=== PATIENT | female | born 1985 | race Caucasian/White ===

== ENCOUNTER 2016-12-11 12:48 | Inpatient (IN) | payer OTHER ==
[2016-11-23 13:53] VITALS: BMI 38.0
--- NOTE | 2016-11-23 14:08 | PAT Medication Instructions ---
Service Date Nov 23, 2016. Current Home Medication List Ferrous Sulfate (Iron), 1 TAB PO QAM Fluticasone Propionate (Nasal) (Flonase Allergy Relief), 1 DOSE NA DAILY Multivitamins/Minerals (Mvi With Minerals), 1 TAB PO HS Sertraline (Zoloft), 25 MG PO HS Medication Instructions For Your Scheduled Surgery - Hold the following medications the morning of surgery: Ferrous Sulfate (Iron), 1 TAB PO QAM - May take the following medications the morning of surgery: Fluticasone Propionate (Nasal) (Flonase Allergy Relief), 1 DOSE NA DAILY - Take the following medications as scheduled the night before surgery: Multivitamins/Minerals (Mvi With Minerals), 1 TAB PO HS Sertraline (Zoloft), 25 MG PO HS *Nothing to eat or drink after midnight* If you have any questions please call us at [phone] or [phone] or [phone]
[2016-11-23 14:54] LABS: HEMATOCRIT 33.8 % (37-47); MEAN CELL VOLUME 84.9 fL (80-100); MEAN CORPUSCULAR HEMOGLOBIN 28.1 pg (25-34); MEAN CORPUSCULAR HGB CONC 33.1 g/dl (32-36); MEAN PLATELET VOLUME 9.9 fL (7.4-10.4); PLATELET COUNT 240 K/uL (130-400); RED BLOOD COUNT 3.98 M/uL (4.2-5.4)
[2016-11-23 15:24] LABS: COMPLETE YES; LYMPH ABS # 1.02 K/uL (1.2-3.4); LYMPHOCYTE % 12.3 %; NEUTROPHILS % 84.2 %
[~2016-12-11] VITALS: Ht 154.9 cm; Wt 94.5 kg
[~2016-12-11 12:48] MED LIST: FERR1TAB23 PO; FLUT0.15; MULT-513 PO; SERT25TA PO
[2016-12-11] MEDS ORDERED: LACTATED RINGER'S 1000ML 1,000 ML IV SCH ×2 (13:20→15:00)
[2016-12-11] MEDS ORDERED: CITRIC ACID/SODIUM CITRATE 15 ML UDC PO ONE ×2 (13:30→14:15)
[2016-12-11 13:48] VITALS: BMI 40.0
[2016-12-11] MEDS ORDERED: OXYTOCIN INJ 10 UNITS/ML VIAL ONE (13:59)
[2016-12-11] MEDS ORDERED: FENTANYL CITRATE INJ 50 MCG/1 ML 2 ML VIAL ONE (13:59)
[2016-12-11] MEDS ORDERED: MoRPHine SULFATE PF 1 MG/ML 10 ML AMP/VIAL ONE (14:00)
[2016-12-11] MEDS ORDERED: CEFAZOLIN IV 2,000 MG in DEXTROSE 5% 50ML 50 ML IV ONE (14:15)
--- NOTE | 2016-12-11 14:15 | History & Physical Bridge Note ---
H&P Re-Evaluation Bridge Note: I have examined the patient, reviewed the History & Physical and in the interval since the performance of the History & Physical I have noted the following changes of clinical significance: No changes noted
[2016-12-11 14:28] LABS: BASO % 0.1 %; BASO ABS # 0.01 K/uL (0-0.2); COMPLETE YES; EOS % 0.2 %; HEMATOCRIT 35.9 % (37-47); IG% 0.6 %; LYMPH % 16.5 %; LYMPH ABS # 1.59 K/uL (1.2-3.4); MEAN CELL VOLUME 86.1 fL (80-100); MEAN CORPUSCULAR HEMOGLOBIN 27.3 pg (25-34); MEAN CORPUSCULAR HGB CONC 31.8 g/dl (32-36); MEAN PLATELET VOLUME 10.8 fL (7.4-10.4); MONO % 6.3 %; NEUT % 76.3 %; PLATELET COUNT 211 K/uL (130-400); RED BLOOD COUNT 4.17 M/uL (4.2-5.4); WHITE BLOOD COUNT 9.62 K/uL (4.8-10.8)
[2016-12-11] MEDS ORDERED: MoRPHine SULFATE PF 1 MG/ML 10 ML AMP/VIAL EPI PRN (14:28)
[2016-12-11] MEDS ORDERED: CEFAZOLIN SOD 1 GM VIAL ONE (14:34)
[2016-12-11] MEDS ORDERED: NALOXONE HCL INJ 1 MG in SODIUM CHLORIDE 0.9% 1000ML 1,000 ML IV PRN ×4 (14:43)
[2016-12-11] MEDS ORDERED: NALOXONE HCL INJ 0.08 MG in SYRINGE 1.8 ML IV PRN (14:43)
[2016-12-11] MEDS ORDERED: LACTATED RINGER'S 1000ML 500 ML IV PRN (14:43)
[2016-12-11] MEDS ORDERED: SODIUM CHLORIDE 0.9% 1000ML 1,000 ML IV PRN (14:43)
[2016-12-11] MEDS ORDERED: PROMETHAZINE HCL INJ 25 MG in SODIUM CHLORIDE 0.9% 50ML 50 ML IV PRN (14:45)
[2016-12-11] MEDS ORDERED: NALBUPHINE HCL INJ 10 MG/ML AMP IV PRN (14:45)
[2016-12-11] MEDS ORDERED: DiphenhydrAMINE HCL 50 MG/ML VIAL IV PRN (14:45)
[2016-12-11] MEDS ORDERED: NO NARCOTICS OR SEDATIVES SCH (14:45)
[2016-12-11] MEDS ORDERED: NALOXONE HCL 0.4 MG/1 ML VIAL/CARP IV PRN (14:45)
[2016-12-11] MEDS ORDERED: ONDANSETRON INJ 2 MG/ML 2 ML VIAL IV PRN (14:45)
[2016-12-11] MEDS ORDERED: EpHEDrine SULFATE INJ 50 MG/ML AMP IV PRN (14:45)
[2016-12-11] MEDS ORDERED: ONDANSETRON INJ 2 MG/ML 2 ML VIAL ONE (14:55)
[2016-12-11] MEDS ORDERED: DEXAMETHASONE SOD INJ 4 MG/ML VIAL ONE (14:55)
--- NOTE | 2016-12-11 15:05 | HISTORY & PHYSICAL EXAMINATION ---
DATE OF ADMISSION: 12/11/2016 HISTORY OF PRESENT ILLNESS: The patient is a 31-year-old G3, P2, due date 12/18/2016, making her 39+ weeks. The patient presented today with spontaneous rupture of membranes at 4:00 a.m. this morning. Fluid was clear. The patient has a prior section and was originally scheduled for repeat on 12/14/2016. Plan therefore is to proceed with section today. COURSE: Has been unremarkable. LABS: Blood type A positive, antibody negative, rubella immune, RPR nonreactive, GBS negative. PAST MEDICAL HISTORY: 1. Anxiety. 2. Depression. 3. Migraines. PAST SURGICAL HISTORY: C-sections x2, tonsillectomy. ALLERGIES: No known drug allergies. SOCIAL HISTORY: The patient denies tobacco, drug or alcohol use. OBSTETRIC AND GYNECOLOGIC HISTORY: x2. PHYSICAL EXAMINATION: GENERAL: Well-developed, well-nourished white female in no acute distress. HEART: S1, S2; regular rhythm and rate. LUNGS: Clear to auscultation bilaterally. ABDOMEN: Gravid. PELVIC: Deferred. EXTREMITIES: No cyanosis, clubbing or edema. ASSESSMENT AND PLAN: A 31-year-old G3, P2 at 39+ weeks, prior section x2. The patient wishes to have permanent sterilization. Consent is signed. Discussed risks and details of surgery. The patient has agreed to proceed with .
[2016-12-11 15:06] VITALS: Ht 154.9 cm; Wt 94.5 kg
[2016-12-11] MEDS ORDERED: OXYTOCIN INJ 20 UNITS in LACTATED RINGER'S 1000ML 1,000 ML IV SCH (16:00)
[2016-12-11] MEDS ORDERED: HYDROCORTISONE ACETATE 25 MG SUPP PR PRN (16:00)
[2016-12-11] MEDS ORDERED: LANOLIN OINT EXT PRN ×2 (16:00)
[2016-12-11] MEDS ORDERED: SUPERCREAM 0.870 % 15GM JAR EXT PRN (16:00)
[2016-12-11] MEDS ORDERED: SENNA 8.6 MG TAB PO PRN (16:00)
[2016-12-11] MEDS ORDERED: MAGNESIUM HYDROXIDE SUSP 30 ML UDC PO PRN (16:00)
[2016-12-11] MEDS ORDERED: BENZOCAINE 20% AER SPR 82.5 GM CAN EXT PRN (16:00)
--- NOTE | 2016-12-11 16:03 | Anesthesiology Progress Note ---
Anesthesia Post Op Note Date & Time Dec 11, 2016 at 16:02 Notes Mental Status: alert / awake / arousable, participated in evaluation Pt Amnestic to Procedure: Yes Nausea / Vomiting: adequately controlled Pain: adequately controlled Airway Patency, RR, SpO2: stable & adequate BP & HR: stable & adequate Hydration State: stable & adequate Neuraxial Anesthesia: was administered, sensory block is resolving Anesthetic Complications: no major complications apparent
--- NOTE | 2016-12-11 16:09 | [facility] Post Operative Brief Note ---
Immediate Operative Summary Operative Date Dec 11, 2016. Pre-Operative Diagnosis Spontaneous Rupture of Membranes at 39 Weeks. Caesarean Section x 2. Desires Repeat Caesarean Section with Bilateral Tubal Ligation. Post-Operative Diagnosis Same as Preop Procedure(s) Performed Live Male at [address] Villagran Debridging Machine Operator Surgeon(s) Dr. Oneill Estimated Blood Loss 800 ML Specimens Placenta (Exam) Cord Blood Portions of Left and Right Fallopian Tubes
--- NOTE | 2016-12-11 16:29 | OPERATIVE REPORT ---
DATE OF OPERATION: 12/11/2016 INDICATION FOR PROCEDURE: This is a 31-year-old multiparous patient with prior section x2, who is presently at 39+ weeks, wishes to have repeat and bilateral tubal ligation. PREOPERATIVE DIAGNOSES: 1. at 39+ weeks. 2. Previous section x3. 3. Term premature rupture of membranes. 4. Undesired fertility. POSTOPERATIVE DIAGNOSES: Same. PROCEDURES: 1. Repeat x3. 2. Bilateral tubal ligation. SURGEON: Jude Villagran MD FRAME BUILDER: Ryann Oneill MD ANESTHESIA: Spinal. ESTIMATED BLOOD LOSS: 600 mL. URINE OUTPUT: 500 mL clear urine at end of the procedure. INTRAVENOUS FLUIDS: 1000 mL. FINDINGS: Live infant male in cephalic presentation. There is no nuchal cord. Weight and Apgars in the pediatric record. DRAINS: Christian catheter. COMPLICATIONS: None. DISPOSITION: Stable to recovery room. DESCRIPTION OF PROCEDURE: The patient was taken to the operating room where she was prepped and draped in normal sterile fashion in dorsal lithotomy position. A Pfannenstiel incision was made and carried down to the fascia. Fascia was incised in the midline and extended laterally on both sides. The rectus abdominus muscle was sharply dissected off the fascia. Peritoneum was entered sharply. Once inside the uterus, a transverse incision was made on the uterus and extended laterally on both sides. Infant was delivered. Placenta was manually removed. Uterus was closed in 2 layers using 0 Vicryl. There was good hemostasis at the end of the closure. Both left and right fallopian tubes were identified by surgeon and retail assistant manager and followed to the fimbriated end. The right fallopian tube was grabbed in the mid portion and modified [place] tubal ligation performed on both tubes. Both specimens were sent for pathologic analysis. There was good hemostasis at end of the tubal ligation as well. Uterus was returned into the abdomen. Copious amount of irrigation was used to irrigate the abdomen. The peritoneum was closed with a running suture of plain gut suture. Fascia was closed with PDS suture. SubQ space was closed with plain suture and skin was closed with [place]. All instruments are removed from the abdomen and accounted for x2. The patient is stable and sent to recovery. I attest to the content of the Intraoperative Record and any orders documented therein. Any exceptio ns are noted below.
[2016-12-11] MEDS: SIMETHICONE 80 MG CHEW PO SCH ×2 (17:00→20:08)
[2016-12-11 19:45] VITALS: BP 105/65; PULSE 74; TEMP 36.7; O2SAT 98
[2016-12-11] MEDS: DOCUSATE SODIUM 100 MG CAP PO SCH (20:08)
[2016-12-11 20:45] VITALS: O2SAT 100
[2016-12-11 21:45] VITALS: O2SAT 96
[2016-12-11 22:45] VITALS: O2SAT 97
[2016-12-11 23:10] VITALS: BP 97/59; PULSE 79; TEMP 37.2; O2SAT 94
[2016-12-11] MEDS: KETOROLAC TROMETHAMINE 30 MG/ML VIAL IV. PRN (23:23)
[2016-12-12] VITALS (16 sets, daily range): BP systolic 94–108; BP diastolic 55–65; PULSE 78–89; TEMP 36.6–37.1; O2SAT 95–100
[2016-12-12 07:00] LABS: HEMATOCRIT 30.2 % (37-47); MEAN CELL VOLUME 86.5 fL (80-100); MEAN CORPUSCULAR HEMOGLOBIN 27.5 pg (25-34); MEAN CORPUSCULAR HGB CONC 31.8 g/dl (32-36); MEAN PLATELET VOLUME 10.4 fL (7.4-10.4); PLATELET COUNT 196 K/uL (130-400); RED BLOOD COUNT 3.49 M/uL (4.2-5.4); WHITE BLOOD COUNT 12.34 K/uL (4.8-10.8)
[2016-12-12 07:46] LABS: BASO % 0.2 %; BASO ABS # 0.02 K/uL (0-0.2); COMPLETE YES; EOS % 0.1 %; IG% 0.5 %; LYMPH % 16.3 %; LYMPH ABS # 2.01 K/uL (1.2-3.4); MONO % 9.6 %; NEUT % 73.3 %
[2016-12-12] MEDS: DOCUSATE SODIUM 100 MG CAP PO SCH ×2 (08:15→19:53)
[2016-12-12] MEDS: SIMETHICONE 80 MG CHEW PO SCH ×4 (08:15→19:53)
[2016-12-12] MEDS: PRENATAL VITAMIN TAB PO SCH (08:15)
[2016-12-12] MEDS: KETOROLAC TROMETHAMINE 30 MG/ML VIAL IV. PRN (08:18)
[2016-12-12] MEDS ORDERED: DiphenhydrAMINE HCL 50 MG/ML VIAL IV PRN (09:30)
[2016-12-12] MEDS ORDERED: ONDANSETRON INJ 2 MG/ML 2 ML VIAL IV PRN (09:30)
[2016-12-12] MEDS ORDERED: OXYCODONE/ACETAMINOPHEN 5-325 TAB PO PRN (09:30)
[2016-12-12] MEDS ORDERED: PROMETHAZINE HCL INJ 25 MG in SODIUM CHLORIDE 0.9% 50ML 50 ML IV PRN (09:30)
[2016-12-12] MEDS ORDERED: DC INTRASPINAL MORPHINE SCH (09:30)
[2016-12-12] MEDS ORDERED: ZOLPIDEM TARTRATE 5 MG TAB PO PRN (09:30)
--- NOTE | 2016-12-12 11:51 | OB/GYN Progress Note ---
LETTER OF CREDIT CLERK Progress Note Date of Service Dec 12, 2016. Subjective conversation w/ patient, physical exam Ambulation: ambulating normally Voiding: no voiding problems Passing Gas: Yes Diet Tolerance: Regular Diet Lochia: Small Feeding Type: Breast Feeding Pain: 2/10 Notes: Doing well, no concerns. Pain well controlled. Lochia minimal. Ambulating without difficulty. Objective Vital Signs Date Time Temp Pulse Resp B/P Pulse Ox O2 Delivery O2 Flow Rate FiO2 12/12/16 09:40 18 99 12/12/16 08:40 18 97 12/12/16 07:40 100 Room Air 12/12/16 07:40 18 100 12/12/16 07:36 18 98 12/12/16 07:20 36.9 89 18 100/56 98 Room Air 12/12/16 06:30 18 97 12/12/16 06:00 16 96 12/12/16 05:00 16 95 12/12/16 04:00 18 99 12/12/16 03:20 37.1 78 18 102/55 95 Room Air 12/12/16 03:00 18 96 12/12/16 02:00 16 95 12/12/16 01:00 18 100 12/12/16 00:10 18 96 12/11/16 23:10 37.2 79 16 97/59 94 Room Air 12/11/16 23:10 94 Room Air 12/11/16 23:10 16 94 12/11/16 22:45 18 97 12/11/16 21:45 16 96 12/11/16 20:45 18 100 12/11/16 19:45 18 98 12/11/16 19:45 36.7 74 18 105/65 98 Room Air 12/11/16 19:45 98 Room Air Physical Exam General Appearance: WELL-APPEARING Respiratory/Chest: chest non-tender, lungs clear Cardiovascular: regular rate, rhythm Abdomen: normal bowel sounds, soft Fundus: Firm Incision Description: Clean, Dry & Intact Extremities: normal range of motion, non-tender, no calf tenderness Laboratory Results Last 24 Hours Test 12/11/16 13:58 12/12/16 06:25 White Blood Count 9.62 K/uL 12.34 K/uL Red Blood Count 4.17 M/uL 3.49 M/uL Hemoglobin 11.4 g/dL 9.6 g/dL Hematocrit 35.9 % 30.2 % Mean Corpuscular Volume 86.1 fL 86.5 fL Mean Corpuscular Hemoglobin 27.3 pg 27.5 pg Mean Corpuscular Hemoglobin Concent 31.8 g/dl 31.8 g/dl Platelet Count 211 K/uL 196 K/uL Mean Platelet Volume 10.8 fL 10.4 fL Neutrophils (%) (Auto) 76.3 % 73.3 % Lymphocytes (%) (Auto) 16.5 % 16.3 % Monocytes (%) (Auto) 6.3 % 9.6 % Eosinophils (%) (Auto) 0.2 % 0.1 % Basophils (%) (Auto) 0.1 % 0.2 % Neutrophils # (Auto) 7.33 K/uL 9.06 K/uL Lymphocytes # (Auto) 1.59 K/uL 2.01 K/uL Monocytes # (Auto) 0.61 K/uL 1.18 K/uL Eosinophils # (Auto) 0.02 K/uL 0.01 K/uL Basophils # (Auto) 0.01 K/uL 0.02 K/uL RDW Standard Deviation 52.2 fL 53.0 fL RDW Coefficient of Variation 16.7 % 16.8 % Immature Granulocyte % (Auto) 0.6 % 0.5 % Immature Granulocyte # (Auto) 0.06 K/uL 0.06 K/uL Assessment and Plan Post-Op Day Number: 1 Continue Routine Care: -Continue routine postop care -Advance activity and diet as tolerated.
[2016-12-12] MEDS: IBUPROFEN 600 MG TAB PO PRN ×3 (13:20→21:33)
[2016-12-12] MEDS: OXYCODONE/ACETAMINOPHEN 5-325 TAB PO PRN ×3 (13:20→21:34)
[2016-12-12] MEDS ORDERED: BISACODYL 5 MG TABEC PO ONE (22:00)
[2016-12-12] MEDS ORDERED: SERTRALINE HCL 50 MG TAB PO SCH (22:00)
[2016-12-13 06:08] LABS: HEMATOCRIT 31.8 % (37-47)
[2016-12-13 07:30] VITALS: BP 114/73; PULSE 76; TEMP 36.8
[2016-12-13] MEDS: PRENATAL VITAMIN TAB PO SCH (07:39)
[2016-12-13] MEDS: OXYCODONE/ACETAMINOPHEN 5-325 TAB PO PRN ×2 (07:39→13:33)
[2016-12-13] MEDS: DOCUSATE SODIUM 100 MG CAP PO SCH (07:39)
[2016-12-13] MEDS: SIMETHICONE 80 MG CHEW PO SCH ×2 (07:39→13:34)
[2016-12-13] MEDS: IBUPROFEN 600 MG TAB PO PRN ×2 (07:40→13:33)
--- NOTE | 2016-12-13 08:54 | Surgery Progress Note ---
Surgery Progress Note Date of Service December 13, 2016. Subjective Post OP Day: 2 + ambulating (+ve), + diet, + feeling well, + flatus (+ve ), + pain controlled, + using KEYSEATER OPERATOR, No SOB, No bowel movement, No chest pain, No complaints, No nausea , No vomiting Objective Vital Signs: Date Time Temp Pulse Resp B/P Pulse Ox O2 Delivery O2 Flow Rate FiO2 12/12/16 23:30 Room Air 12/12/16 23:30 36.6 89 16 94/63 98 Room Air 12/12/16 15:30 36.8 79 18 108/65 99 Room Air 12/12/16 15:30 99 Room Air 12/12/16 09:40 18 99 General Appearance: WD/WN, no apparent distress Head: normocephalic, atraumatic Neck: supple, no adenopathy, thyroid normal, no JVD, no carotid bruits, trachea midline Cardiovascular: regular rate, rhythm, no edema, no gallop, no JVD, no murmur Abdomen: normal bowel sounds, non tender, non distended, soft, no organomegaly , no pulsatile mass Extremities: normal range of motion, non-tender, normal inspection, no pedal edema, no calf tenderness, normal capillary refill, pelvis stable Laboratory Results: Results Past 24 Hours Test 12/13/16 05:54 Range/Units Hemoglobin 9.9 12.0-16.0 g/dL Hematocrit 31.8 37-47 % Assessment & Plan s/pc/sec day #2 pt doing well no complaints d/c home tomorrow
--- NOTE | 2016-12-13 15:15 | Progress Note ---
Progress Note Date of Service December 13, 2016. Progress Note pt doing well wishes to go home today instead of tomorrow d/c home with instructions
[2016-12-13] MEDS ORDERED: OXYC-57 PO (15:16)
[2016-12-13] MEDS ORDERED: MTR600X PO (15:16)
--- NOTE | 2016-12-13 15:18 | Discharge Instructions ---
Discharge Instructions Date of Service December 13, 2016. Admission Reason for Admission: Check Rupture Membranes Discharge Discharge Diagnosis / Problem: postop Discharge Goals Goal(s): Routine recovery after Activity Recommendations Activity Limitations: as noted below ACTIVITY RECOMMENDATIONS: * Gradual return to full activity over the next 2-3 weeks. * No lifting - nothing heavier than baby over the next 2-3 weeks. * Do not engage in vigorous exercise, sexual activity or sports until cleared by your physician. * Do not drive or operate any motorized equipment until cleared by your physician. * You may shower/bathe daily. BREAST CARE: If you are not breast feeding: * Wear a supportive bra 24 hours a day for one to two weeks. * Avoid stimulating your breasts and nipples as much as possible during the first few weeks after delivery. * When taking a shower, have the warm water hit your back, not breasts. * When your breasts feel full, apply ice packs. Usually three to four times a day helps ease the discomfort. * Take a mild pain medication (Tylenol/Motrin) when you are uncomfortable. If breast feeding: * Use breast milk to lubricate nipples. Lansinoh cream may be used for sore nipples. You do not need to remove cream prior to breast feeding. If using a different brand of cream, check the label for directions regarding removal of cream prior to nursing. * Wear a supportive bra. * If having problems with breasts or breast feeding, call a work and family life consultant or your health care provider. OVER THE COUNTER MEDICATION: * For discomfort or pain, you may use Acetaminophen (Tylenol), Ibuprofen (Advil ), or Naproxen (Aleve) following the package directions. * For constipation you may use Colace following the package directions. SPECIAL CARE INSTRUCTIONS: When you are discharged from the hospital, it is important for you to follow the instructions listed below: * During the first week at home, you should be able to care for yourself and your baby. In addition, the usual light household activities are encouraged. * Limit your activities to the way you feel. Do not try to clean the house or move furniture. Be sensible. * If you actively engage in sports and have done so up until the time of your delivery, you may resume these activities as soon as you feel able. This may take up to one month or even longer. Use good judgment. * Continue to take your vitamins for at least six weeks after the of your baby. * Your diet need not be limited unless you were on a special diet before your delivery. Breast-feeding mothers need around 2500 calories per day and at least 64-80 ounces of fluid per day (8 to 10 glasses). * You should eat foods from the four major food groups. Crash diets or fad diets are to be avoided. Eating lean meats, fresh fruits and vegetables, low-fat dairy products, high fiber foods and a regular exercise program, will help you get back to your pre- weight without putting your health at risk. * Constipation is sometimes a problem after delivery. Take a mild laxative as needed. If breast feeding, Milk of Magnesia is acceptable to use. You may use a suppository or Fleets enema if no episiotomy. * A daily shower or tub bath is suggested. Be sure to thoroughly and gently dry the perineum. * A bloody vaginal discharge will usually continue until around four weeks post . A small amount of bleeding may continue for as long as six weeks. Vaginal discharge changes from the bright red bleeding after delivery to pink then brownish and finally yellowish-pink before becoming white and disappearing. * Bleeding may increase with activity. Your first period may come in 4-8 weeks. If you are breast feeding, your period may be delayed even longer. * [place] (sex) can begin whenever both you and your partner feel comfortable and do not have any form of genital infection. It is recommended that you wait at least six weeks for internal and external healing to occur. If you have questions, please talk to your health care practitioner. A condom should be used to prevent infection and . * Foreplay, gentle intercourse and lubrication is very important the first several times to prevent pain. A water-based lubricant such as K-Y jelly or Astroglide may be used. * Tampons and/or Douching should be avoided until after six weeks check-up. * If you have RH negative blood and your baby is RH positive, you will receive RHOGAM by injection prior to discharge. The nurse will give you a card to keep with you that has the date and place that you received RHOGAM after delivery. * During your care, you had a Rubella screen done to check for the presence of rubella antibodies in your blood. If your test was negative, you will receive a Rubella vaccine prior to discharge. This vaccine may cause a fever, soreness at the injection site and flu-like symptoms. If these symptoms persist, notify your health care practitioner. is not advised for three months after a Rubella vaccine. * Verbalizes understanding of car seat law as reviewed with patient nursing. * Car Seat hand-out given and reviewed with patient by nursing. * Shaken baby information reviewed with patient by nursing. Call you doctor if: * Heavy bleeding (saturating several pads an hour) or passing clots the size of your fist. * A fever >101 degrees F (38.3 degrees C) on two occasions four hours apart and /or chills. * Unusual pain in the pelvic or vaginal areas. Pain should improve each day . * Call the doctor for any increased redness, drainage or swelling around the incision and any pain unrelieved by prescribed pain medication. * Any signs or symptoms of phlebitis (possible blood clots forming in the veins ): leg pain, warm, red or swollen area on leg. * "Baby Blues" lasting longer than two weeks. If you have any questions or concerns, call your health care practitioner at . FOLLOW-UP VISIT: * Incision check (staple removal) in 1 week. Please call doctor's office at to set up appointment. * Please call the office at to schedule a 6 week examination. It is important you keep this appointment. * It is important for you to make arrangements for either yearly or twice yearly check-ups thereafter. . Current Hospital Diet Patient's current hospital diet: Regular OB Diet Discharge Diet Recommended Diet: Regular Diet Procedures Procedures Performed: Live Male at 1451 Pending Studies Studies pending at discharge: no Medical Emergencies . Who to Call and When: Medical Emergencies: If at any time you feel your situation is an emergency, please call [phone] immediately. . Non-Emergent Contact Non-Emergency issues call your: Specialist . . "Provider Documentation" section prepared by Jude Villagran. . VTE Core Measure Inpt VTE Proph given/why not?: Treatment not indicated
[2016-12-13 15:55] VITALS: BP_DIAS 73; PULSE 76; TEMP 36.8
[2016-12-13] MEDS ORDERED: BISACODYL 10 MG SUPP PR PRN (16:00)
--- NOTE | 2016-12-14 07:45 | DISCHARGE SUMMARY ---
CHIEF COMPLAINT: 1. at term. 2. Previous section. 3. Premature rupture of membranes. HISTORY OF PRESENT ILLNESS: This is a 31-year-old G3, P2 with due date of 12/18/2016 making her 39+ weeks on 12/11/2016. The patient was originally scheduled for on 12/14/2016. She, however, presented on 12/11/2016 with premature spontaneous rupture of membranes at 4:00 a.m. Decision was therefore made to proceed with section and tubal ligation, which the patient had been scheduled and consented to earlier. COURSE AND : Unremarkable. LABORATORY DATA: Blood type A positive, antibody negative, rubella immune, RPR nonreactive, GBS negative. PAST MEDICAL HISTORY: 1. Anxiety. 2. Depression. 3. Migraines. PAST SURGICAL HISTORY: C-sections x3 and tonsillectomy. ALLERGIES: No known drug allergies. SOCIAL HISTORY: The patient denied tobacco, drug or alcohol use. PRIOR OB-STRATEGIC PLANNING MANAGER HISTORY: x2. REVIEW OF SYSTEMS: Negative except as dictated in the HPI. HOSPITAL COURSE: The patient underwent 12/11/2016 to deliver a live male. Details of the weight and Apgars are in the pediatric record. She also had a bilateral tubal ligation with the procedure. Details of surgery are in the surgical record as well. Surgery was unremarkable. The patient did well, met all milestones on day 1 of surgery. The patient was able to ambulate, tolerate p.o. food and diet. Today on day 2, the patient continued to do well and improved. She decided to go home today. She had 2 other kids at home and was not willing to stay the extra day, which is often section. She has no fever, no chills, able to tolerate p.o. food and meds. The patient was therefore discharged home today in stable condition. PHYSICAL EXAMINATION: GENERAL: Well-developed, well-nourished white female in no acute distress. VITAL SIGNS: On 12/13/2016, showed temperature of 36.8, pulse of 76, respirations of 16, blood pressure of 140/73. HEART: S1, S2, regular rhythm and rate. LUNGS: Clear to auscultation bilaterally. ABDOMEN: Nontender, nondistended. Positive bowel sounds. Incision is clean, dry and intact. EXTREMITIES: No cyanosis, clubbing or edema. LABORATORY DATA: On 12/13/2016 showed hemoglobin of 9.9, hematocrit of 31.8. Platelets of 196,000. CONDITION ON DISCHARGE: Stable. OPERATIONS: Repeat x3 plus bilateral tubal ligation. DISCHARGE DIAGNOSIS: Repeat x3 plus bilateral tubal ligation. PLAN ON DISCHARGE: The patient is discharged home with instructions regarding activity, diet, followup appointment and medications. GENESIS
== END 2016-12-13 17:00 | disposition home or self-care (01) | DRG 766 ==
LOC: C.LD 12:48 → C.OPB 12:48 → C.LD 13:23 → C.OPB 14:56 → C.OBG 19:16 → EDSTATUS 12-14 07:30
PROVIDERS: ADMIT Obstetrics & Gynecology; ATTEND Obstetrics & Gynecology
PROC: 0UL70ZZ Occlusion of Bilateral Fallopian Tubes, Open Approach (ICD-10-PCS; principal; 2016-12-11 14:00)
PROC: 10D00Z1 Extraction of Products of Conception, Low, Open Approach (ICD-10-PCS; principal; 2016-12-11 14:00)
DX: O34.211 Maternal care for low transverse scar from previous cesarean delivery (principal); O42.02 Full-term premature rupture of membranes, onset of labor within 24 hours of rupture; Z30.2 Encounter for sterilization; O99.344 Other mental disorders complicating childbirth; F32.9 Major depressive disorder, single episode, unspecified; Z3A.39 39 weeks gestation of pregnancy; Z37.0 Single live birth; G43.909 Migraine, unspecified, not intractable, without status migrainosus; F41.9 Anxiety disorder, unspecified; O99.353 Diseases of the nervous system complicating pregnancy, third trimester

== ENCOUNTER 2017-05-20 21:37 | Emergency (ER) | payer OTHER ==
[~2017-05-20] VITALS: Ht 154.9 cm; Wt 90.3 kg
[~2017-05-20 21:37] MED LIST changes: +MTR600X PO; +OXYC-57 PO
[2017-05-20 21:40] VITALS: TEMP 37; Ht 154.9 cm; Wt 90.3 kg
[2017-05-20] MEDS ORDERED: KETOROLAC TROMETHAMINE 30 MG/ML VIAL IV STA (22:59)
[2017-05-20] MEDS ORDERED: DiphenhydrAMINE HCL 50 MG/ML VIAL IV STA (22:59)
[2017-05-20] MEDS ORDERED: PROCHLORPERAZINE 5 MG/ML 2 ML VIAL IV STA (22:59)
[2017-05-20] MEDS ORDERED: SODIUM CHLORIDE 0.9% 1000ML 1,000 ML IV ONE (23:00)
[2017-05-20] MEDS ORDERED: SERT50TA PO (23:13)
[2017-05-20] MEDS ORDERED: [UNRECOGNIZED DRUG - OTHER] PO (23:15)
[2017-05-20 23:42] LABS: BASO % 0.4 %; BASO ABS # 0.04 K/uL (0-0.2); COMPLETE YES; EOS % 1.4 %; HEMATOCRIT 41.1 % (37-47); IG% 0.3 %; LYMPH % 29.5 %; LYMPH ABS # 3.32 K/uL (1.2-3.4); MEAN CELL VOLUME 89.5 fL (80-100); MEAN CORPUSCULAR HEMOGLOBIN 29.8 pg (25-34); MEAN CORPUSCULAR HGB CONC 33.3 g/dl (32-36); MONO % 6.2 %; NEUT % 62.2 %; PLATELET COUNT 393 K/uL (130-400); RED BLOOD COUNT 4.59 M/uL (4.2-5.4); WHITE BLOOD COUNT 11.25 K/uL (4.8-10.8)
[2017-05-21] LABS: CALCIUM 9.4 mg/dl (8.5-10.1); CREATININE 0.67 mg/dl (0.60-1.20); POTASSIUM 3.7 mmol/L (3.5-5.1)
[2017-05-21 00:03] LABS: ALB/GLOB RATIO 1.1 (0.9-2)
[2017-05-21 01:07] LABS: LYME DISEASE AB IGG NEG (NEG); LYME DISEASE AB IGM NEG (NEG)
[2017-05-21 01:29] VITALS: BP 130/93; PULSE 86; O2SAT 97
[2017-05-21] MEDS ORDERED: AMOX875T PO (02:28)
[2017-05-21] MEDS ORDERED: AMOXICIL/CLAVU 875MG HOME PACK PO ONE (02:30)
--- NOTE | 2017-05-21 07:02 | DIAGNOSTIC IMAGING REPORT ---
HEAD WITHOUT CONTRAST (CT) CLINICAL HISTORY: 31 years-old Female with Head/Face pain after dental surgery. Acute head and facial pain status post dental surgery TECHNIQUE: Multiple axial CT images of the head were obtained without contrast. A dose lowering technique was utilized adhering to the principles of ALARA. CT DOSE: 760.82 mGy.cm COMPARISON: CT maxillofacial same day. FINDINGS: No acute intracranial hemorrhage, midline shift, mass, large territorial ischemia or abnormal extra-axial collection. The calvarium is intact. The paranasal sinuses, mastoid air cells, and middle ear cavities are clear. IMPRESSION: No acute intracranial abnormality. The above report was generated using voice recognition software. It may contain grammatical, syntax or spelling errors. Electronically signed by: Thong Ruiz M.D. 05/21/2017 7:01 AM Dictated Date/Time: 05/21/2017 7:00 AM
--- NOTE | 2017-05-21 07:25 | DIAGNOSTIC IMAGING REPORT ---
FACIAL BONES-MXILLOFAC WITHOUT CLINICAL HISTORY: 31 years-old Female presenting with Head/Face pain after dental surgery. Acute facial pain status post dental surgery COMPARISON STUDY: CT head same day TECHNIQUE: High-resolution CT scan of the facial bones is performed. Images are reviewed in the axial, sagittal, and coronal planes. IV contrast was not administered for this examination. A dose lowering technique was utilized adhering to the principles of ALARA. FINDINGS: There is evidence of recent bilateral maxillary and mandibular third molar extraction. Multifocal fractures are seen within the adjacent bilateral maxillary and left mandibular carmichael at the surgical sites as seen on images 243 of series 5 and image 166 series 5 as well as image 51 series 500 and image 49 series 500. Soft tissue swelling is also seen within these distributions without loculated collection to suggest abscess at this time. There is dental amalgam artifact throughout the oral cavity which mildly limits the study. The bony orbits are intact and the orbital contents are within normal limits. The zygomatic arches, nasal bones, and pterygoid plates are preserved. The maxilla and mandible are intact. Mild mucosal thickening of the maxillary and ethmoid sinuses. The imaged calvarium and upper cervical spine are within normal limits. Partially imaged brain parenchyma is within normal limits. IMPRESSION: Evidence of recent bilateral maxillary and mandibular third molar tooth extraction. Multiple fractures are seen within the adjacent bilateral maxillary and left mandibular carmichael at the surgical sites as above. There is adjacent soft tissue swelling within these distributions without loculated collection to suggest abscess at this time. The above report was generated using voice recognition software. It may contain grammatical, syntax or spelling errors. Electronically signed by: Thong Ruiz M.D. 05/21/2017 7:24 AM Dictated Date/Time: 05/21/2017 7:17 AM
--- NOTE | 2017-05-22 03:05 | EMERGENCY ROOM VISIT NOTE ---
History First contact with patient: 22:43 Chief Complaint: HEADACHE Stated Complaint: HEADACHE, SORE THROAT, RASH History of Present Illness The patient is a 31 year old female who presents to the Emergency Room with complaints of right-sided facial pain and headache for the past 2 weeks. The patient states that she has slowly developed symptoms after having her wisdom teeth extracted. She additionally reports having a rash on her hands, however her young son has a similar rash and he does attend daycare. The patient has not had fever or chills. She does not have neck pain, chest pain, chest tightness, or shortness of breath. She has been able to eat and drink. She has had intermittent sore throat but no throat swelling. She rates her discomfort a 7/10. Review of Systems More than 10 systems were reviewed and otherwise negative with the exception of history of present illness. Past Medical/Surgical History Medical Problems: (1) Anxiety State Nos (2) Asthma, Unspecified (3) Depressive Disorder Nec (4) Migraine Unspecified W/O Intract Mgrn W/O Status Migrainosus Social History Problems: (1) Anxiety State Nos Family History Cardiovascular disease Diabetes mellitus Social History Smoking Status: Never Smoker Alcohol Use: occasionally Drug Use: none Marital Status: Housing Status: unknown Occupation Status: employed Current/Historical Medications Scheduled Amoxicillin & Pot Clavulanate (Augmentin 875-125 mg), 1 TAB PO BID Sertraline (Zoloft), 50 MG PO DAILY [Tylenol Severe Sinus], 2 TABS PO DAILY Physical Exam Vital Signs Date Time Temp Pulse Resp B/P (MAP) Pulse Ox O2 Delivery O2 Flow Rate FiO2 05/21/17 01:29 86 18 130/93 97 Room Air 05/20/17 21:40 37.0 92 18 141/99 98 Room Air Physical Exam VITALS: Vitals are noted on the nurse's note and reviewed by myself. Vital signs stable. GENERAL: Well-developed, well-nourished, white female, who is in no acute distress and resting comfortably. Patient is cooperative with the examination. HEAD: Normocephalic atraumatic. EARS: External ear normal. External auditory canals clear, tympanic membranes pearly terry without erythema or effusion bilaterally. EYES: Pupils equal round and reactive to light and accommodation. Conjunctivae without injection, sclerae without icterus. Extraocular movements intact. NOSE: Patent, turbinates without inflammation or discharge. MOUTH: Mucous membranes moist. Tonsils are not enlarged. Pharynx without erythema, blood, or exudate. Uvula midline. Airway patent. Dentition overall good repair. There appears to be recent extraction of right-sided wisdom teeth without obvious abscess. No evidence of Darren's. NECK: Supple without nuchal rigidity. No lymphadenopathy. No thyromegaly. Cervical spine is nontender. No meningismus. HEART: Regular rate and rhythm without murmurs gallops or rubs. LUNGS: Clear to auscultation bilaterally without wheezes, rales or rhonchi. No retractions or accessory muscle use. ABDOMEN: Positive normal bowel sounds x 4. Soft, nontender, without masses or organomegaly. No guarding or rebound tenderness. MUSCULOSKELETAL: No muscle atrophy, erythema, or edema noted. Full range of motion without joint tenderness in all extremities. Medical Decision & Procedures ER Provider Diagnostic Interpretation: [~ rep ct add3]] HEAD WITHOUT CONTRAST (CT) CLINICAL HISTORY: 31 years-old Female with Head/Face pain after dental surgery. Acute head and facial pain status post dental surgery TECHNIQUE: Multiple axial CT images of the head were obtained without contrast. A dose lowering technique was utilized adhering to the principles of ALARA. CT DOSE: 760.82 mGy.cm COMPARISON: CT maxillofacial same day. FINDINGS: No acute intracranial hemorrhage, midline shift, mass, large territorial ischemia or abnormal extra-axial collection. The calvarium is intact. The paranasal sinuses, mastoid air cells, and middle ear cavities are clear. IMPRESSION: No acute intracranial abnormality. FACIAL BONES-MXILLOFAC WITHOUT CLINICAL HISTORY: 31 years-old Female presenting with Head/Face pain after dental surgery. Acute facial pain status post dental surgery COMPARISON STUDY: CT head same day TECHNIQUE: High-resolution CT scan of the facial bones is performed. Images are reviewed in the axial, sagittal, and coronal planes. IV contrast was not administered for this examination. A dose lowering technique was utilized adhering to the principles of ALARA. FINDINGS: There is evidence of recent bilateral maxillary and mandibular third molar extraction. Multifocal fractures are seen within the adjacent bilateral maxillary and left mandibular carmichael at the surgical sites as seen on images 243 of series 5 and image 166 series 5 as well as image 51 series 500 and image 49 series 500. Soft tissue swelling is also seen within these distributions without loculated collection to suggest abscess at this time. There is dental amalgam artifact throughout the oral cavity which mildly limits the study. The bony orbits are intact and the orbital contents are within normal limits. The zygomatic arches, nasal bones, and pterygoid plates are preserved. The maxilla and mandible are intact. Mild mucosal thickening of the maxillary and ethmoid sinuses. The imaged calvarium and upper cervical spine are within normal limits. Partially imaged brain parenchyma is within normal limits. IMPRESSION: Evidence of recent bilateral maxillary and mandibular third molar tooth extraction. Multiple fractures are seen within the adjacent bilateral maxillary and left mandibular carmichael at the surgical sites as above. There is adjacent soft tissue swelling within these distributions without loculated collection to suggest abscess at this time. Laboratory Results 05/20/17 23:22 Red Blood Count 4.59, Mean Corpuscular Volume 89.5, Mean Corpuscular Hemoglobin 29.8, Mean Corpuscular Hemoglobin Concent 33.3, Mean Platelet Volume 10.0, Neutrophils (%) (Auto) 62.2, Lymphocytes (%) (Auto) 29.5, Monocytes (%) (Auto) 6.2, Eosinophils (%) (Auto) 1.4, Basophils (%) (Auto) 0.4, Neutrophils # (Auto) 7.00, Lymphocytes # (Auto) 3.32, Monocytes # (Auto) 0.70, Eosinophils # (Auto) 0.16, Basophils # (Auto) 0.04 05/20/17 23:22 Test 05/20/17 23:22 White Blood Count 11.25 K/uL (4.8-10.8) Red Blood Count 4.59 M/uL (4.2-5.4) Hemoglobin 13.7 g/dL (12.0-16.0) Hematocrit 41.1 % (37-47) Mean Corpuscular Volume 89.5 fL (80-100) Mean Corpuscular Hemoglobin 29.8 pg (25-34) Mean Corpuscular Hemoglobin Concent 33.3 g/dl (32-36) Platelet Count 393 K/uL (130-400) Mean Platelet Volume 10.0 fL (7.4-10.4) Neutrophils (%) (Auto) 62.2 % Lymphocytes (%) (Auto) 29.5 % Monocytes (%) (Auto) 6.2 % Eosinophils (%) (Auto) 1.4 % Basophils (%) (Auto) 0.4 % Neutrophils # (Auto) 7.00 K/uL (1.4-6.5) Lymphocytes # (Auto) 3.32 K/uL (1.2-3.4) Monocytes # (Auto) 0.70 K/uL (0.11-0.59) Eosinophils # (Auto) 0.16 K/uL (0-0.5) Basophils # (Auto) 0.04 K/uL (0-0.2) RDW Standard Deviation 42.3 fL (36.4-46.3) RDW Coefficient of Variation 13.0 % (11.5-14.5) Immature Granulocyte % (Auto) 0.3 % Immature Granulocyte # (Auto) 0.03 K/uL (0.00-0.02) Anion Gap 10.0 mmol/L (3-11) Est Creatinine Clear Calc Drug Dose 122.1 ml/min Estimated GFR () 133.9 Estimated GFR (Non- 115.5 BUN/Creatinine Ratio 15.0 (10-20) Calcium Level 9.4 mg/dl (8.5-10.1) Total Bilirubin 0.2 mg/dl (0.2-1) Aspartate Amino Transf (AST/SGOT) 18 U/L (15-37) Alanine Aminotransferase (ALT/SGPT) 44 U/L (12-78) Alkaline Phosphatase 86 U/L (45-117) Total Protein 8.0 gm/dl (6.4-8.2) Albumin 4.1 gm/dl (3.4-5.0) Globulin 3.9 gm/dl (2.5-4.0) Albumin/Globulin Ratio 1.1 (0.9-2) Lyme Disease IgG Antibody NEG (NEG) Lyme Disease IgM Antibody NEG (NEG) Medications Administered Medications (Trade) Dose Ordered Sig/Jos Route Start Time Stop Time Status Last Admin Dose Admin Sodium Chloride 1,000 ml @ 999 mls/hr Q1H1M ONCE IV 05/20/17 23:00 05/21/17 00:00 DC 05/20/17 23:33 999 MLS/HR Diphenhydramine HCl (Benadryl Inj) 25 mg NOW STAT IV 05/20/17 22:59 05/20/17 23:01 DC 05/20/17 23:33 25 MG Prochlorperazine Edisylate (Compazine Inj) 5 mg NOW STAT IV 05/20/17 22:59 05/20/17 23:01 DC 05/20/17 23:34 5 MG Ketorolac Tromethamine (Toradol Inj) 30 mg NOW STAT IV 05/20/17 22:59 05/20/17 23:01 DC 05/20/17 23:34 30 MG Amoxicillin/ Clavulanate Potassium (Augmentin 875MG Home Pack) 1 homepack UD ONCE PO 05/21/17 02:30 05/21/17 02:31 DC 05/21/17 02:45 1 HOMEPACK ED Course Physical exam and history were performed. Nursing notes, EMR, and Medication List were personally reviewed. Patient appears to have headache and right-sided facial pain for the past several days. The patient does not appear toxic on examination. She does have recent history of was some teeth removal. IV access was established and labs were obtained. Patient was hydrated medicated as above. Because of her symptoms I did elect CT scan of the head and face. The patient has a very minimally elevated white blood cell count of 11,000. She does not have a significant anemia or bandemia. No significant electrolyte imbalance. CT scan of the head does not show significant findings. CT scan of the face does show evidence of recent extraction with small fractures at the extraction sites. Overall the patient appears well for discharge home. I suspect much of her discomfort is coming from traumatic dental extraction. I will start her on a course of antibiotics to help eliminate infectious etiology. Evidently the patient has an upcoming appointment with her surgeon in 3 days, and is to keep that appointment. She may use [id number] ibuprofen and Tylenol. She was given additional discharge instructions as below. The chart was completed utilizing [employer] Speech Voice Recognition Software. Grammatical errors, random word insertions, pronoun errors, and incomplete sentences are an occasional consequence of this system due to software limitations, ambient noise, and hardware issues. Any formal questions or concerns about the content, text, or information contained within the body of this dictation should be directly addressed to the provider for clarification. . Medical Decision The differential diagnosis includes, but is not limited to: Dental infection, traumatic dental removal, Ludwigs, cellulitis, acute intracranial bleed, meningitis, encephalitis, mass or mass effect, sinusitis, infection, tumor, headache, temporal arteritis and carbon monoxide exposure, and migraine. Impression Primary Impression: Facial pain Departure Information Dispostion Home / Self-Care Condition GOOD Prescriptions Amoxicillin & Pot Clavulanate (Augmentin 875-125 mg) 1 Tab Tab 1 TAB PO BID for 10 Days, #20 TAB Prov: Pramod Jimenez PA-C 05/21/17 Forms HOME CARE DOCUMENTATION FORM, IMPORTANT VISIT INFORMATION Patient Instructions My [facility] Additional Instructions You were seen and evaluated today on an emergency basis only. This is not a substitute for, or an effort to provide, complete comprehensive medical care. It is not possible to recognize and treat all injuries or illnesses in a single emergency department visit. For this reason it is recommended that you followup with your dentist/oral surgeon next week for ongoing care and evaluation. For baseline pain relief you may alternate ibuprofen and acetaminophen every 4 hours for pain control. Take 600 mg ibuprofen (Advil) and then 4 hours later take 1000 mg acetaminophen (Tylenol). Do not take more than 3000 mg acetaminophen in a single day. Amoxicillin Clavulanate (Augmentin) 875mg: Take one pill twice daily for 10 days for your infection. All antibiotics can cause diarrhea. If this occurs and you feel worse or it does not resolve in 1-2 days follow up with your doctor or return to the Emergency Department as this could be signs of serious underlying problems. Any medication can cause an allergic reaction, stop the pills immediately and return to the ER for rash, hives, breathing difficulties, or swelling. You are welcome to return to the emergency department anytime with new, worsening, or concerning symptoms.
== END 2017-05-21 02:35 | disposition home or self-care (01) ==
LOC: C.EDB 21:38 → C.EDA 05-21 02:35
DX: R51 Headache (principal); F41.9 Anxiety disorder, unspecified; J45.909 Unspecified asthma, uncomplicated; F32.9 Major depressive disorder, single episode, unspecified; Z82.49 Family history of ischemic heart disease and other diseases of the circulatory system; Z83.3 Family history of diabetes mellitus

== ENCOUNTER 2017-08-06 17:45 | Emergency (ER) | payer OTHER ==
[~2017-08-06] VITALS: Ht 154.9 cm; Wt 94.2 kg
[~2017-08-06 17:45] MED LIST changes: -FERR1TAB23 PO; -FLUT0.15; -MTR600X PO; -MULT-513 PO; -OXYC-57 PO; -SERT25TA PO; +[UNRECOGNIZED DRUG - OTHER] PO
[2017-08-06 17:47] VITALS: BP 130/89; PULSE 82; TEMP 36.7; O2SAT 98; Ht 154.9 cm; Wt 94.2 kg
[2017-08-06] MEDS ORDERED: B-CO1CAP17 PO (18:31)
[2017-08-06] MEDS ORDERED: FLNIN/ NAE (18:31)
[2017-08-06] MEDS ORDERED: ROYA1CAP2 PO (18:31)
--- NOTE | 2017-08-06 19:34 | EMERGENCY ROOM VISIT NOTE ---
History First contact with patient: 17:56 Chief Complaint: SHOULDER PAIN Stated Complaint: SHOULDER PAIN History of Present Illness The patient is a 31 year old white female who presents to the Emergency Room with complaints of upper back pain and left shoulder pain with radiation to her left hand. 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 She woke up 2 days ago with pain in her upper back and left arm. The pain has persisted. It has become worse with activity. [id number]. She has a known history of chronic low back pain. She notes numbness and tingling in both hands but the tingling is now worse in the left arm. She has never seen an orthopedist or neurologist. She has never had a nerve conduction study. No specific injury. She denies any known activity at work or at home that caused her symptoms. She does have 2 small children at home and carries them frequently. A male administrative services director accompanies her today. She points to the front and back of the left shoulder as her area of worst discomfort. She notes that her left arm symptoms are worse when she looks to the left and better when she looks to the right. Review of Systems REVIEW OF SYSTEM: HEENT: No dizziness, visual problems, hearing loss, or tinnitus. There is no difficulty swallowing and no oral lesions are present. LYMPH: No adenopathy. PULMONARY: No cough, shortness of breath, sputum production or hemoptysis. CARDIOVASCULAR: No chest pain, palpitations, shortness of breath or peripheral edema. GASTROINTESTINAL: No diarrhea, constipation, nausea, vomiting, or abdominal pain. GENITOURINARY: No dysuria, frequency, urgency or nocturia. NEUROLOGIC: No weakness, epilepsy or history of neurological problems. MUSCULOSKELETAL: No history of joint tenderness/swelling. SKIN: No rashes or lesions. PSYCHIATRIC: Positive history of anxiety. ENDOCRINE: No history of thyroid disorders, or abnormal hair growth. Positive diabetes. Past Medical/Surgical History Medical Problems: (1) Anxiety State Nos (2) Asthma, Unspecified (3) Depressive Disorder Nec (4) Migraine Unspecified W/O Intract Mgrn W/O Status Migrainosus Social History Problems: (1) Anxiety State Nos Previous surgeries: Significant for 2 and tonsillectomy Family History Cardiovascular disease Diabetes mellitus Significant for diabetes, heart disease, hypertension, cancer, lung disease, gallbladder disease, and kidney stones. Parents are living. Social History Smoking Status: Never Smoker Smokeless Tobacco Use: No Alcohol Use: occasionally Drug Use: none Marital Status: Housing Status: lives with family Occupation Status: employed Current/Historical Medications Scheduled Fluticasone Propionate (Fluticasone Propionate), 2 SPRAYS MONET DAILY [place] Jelly ([place] Jelly), 1 TAB PO DAILY Sertraline (Zoloft), 50 MG PO DAILY Vitamin B Cmplx/Vitc/Folic Ac (Nephrocaps), 1 CAP PO DAILY Allergies Coded Allergies: Adhesives (Verified Allergy, Severe, RED,IRRITATION, 05/20/17) NO KNOWN DRUG ALLERGIES (Verified Allergy, Mild, ., 05/20/17) Lactose Intolerance (GI) (Verified Adverse Reaction, Mild, GI SYMPTOMS, ) Physical Exam Vital Signs Date Time Temp Pulse Resp B/P (MAP) Pulse Ox O2 Delivery O2 Flow Rate FiO2 08/06/17 17:47 36.7 82 16 130/89 98 Room Air Physical Exam Gen.: Well-developed, well-nourished, obese young white female, sitting on a bed. Alert and oriented. No acute distress. Skin: Warm and dry with good turgor. No rashes or lesions. No ecchymosis or erythema. The patient is not diaphoretic. No abrasions. Musculoskeletal: No obvious asymmetry or deformity to the shoulder or arm. She has diffuse discomfort with palpation across the cervical and thoracic spine. Diffuse discomfort with palpation across the left paraspinal musculature, rotator cuff musculature, latissimus, trapezius, and deltoid. No discomfort with palpation over the bicep or tricep. Full range of motion of the digits, wrist, elbow, and shoulder. Motion of the shoulder does increase her discomfort. Strength is 5/5 for resisted internal and external rotation of the shoulder as well as abduction and forward flexion. All of these cause pain. There is pain associated with supraspinatus testing but no drop arm. No noticeable fatigue with resistance testing of the shoulder. She does have increasing radicular symptoms with palpation over the trapezius. Neurologic: Gross sensation is intact across both upper extremities by soft touch. Decreased subjective sensation across the median nerve distribution on the right and ulnar nerve distribution on the left. Positive Tinel sign at the right wrist. Positive Phalen's test on the right. No increase in radicular symptoms with palpation over the cervical or thoracic disc spaces. Peripheral pulses are 2+. Medical Decision & Procedures ED Course Patient was educated regarding today's findings. Conservative care measures were discussed. She was placed in a sling for comfort. She did request a note to be off work tomorrow. Note was provided. Follow-up with her PCP if symptoms persist. She should obtain a nerve conduction study to evaluate for carpal tunnel syndrome, cubital tunnel syndrome, and cervical radiculopathy. Avoid heavy lifting above shoulder level. Likelihood of rotator cuff strain was discussed. She was reassured I do not suspect full-thickness tear or biceps tendon rupture. Return to the ED for any acute changes. Medical Decision Possibility of rotator cuff tear, rotator cuff tendinitis, biceps tendon rupture , biceps tendinopathy, cervical radiculopathy, nerve root impingement, brachial plexus radiculopathy, cubital tunnel syndrome, carpal tunnel syndrome, and trapezius strain were considered, among others [place] Drug Monitoring Program Search Results: no issues identified Impression Primary Impression: Tendinopathy of left rotator cuff Additional Impression: Cervical radiculopathy Departure Information Dispostion Home / Self-Care Forms WORK / SCHOOL INSTRUCTIONS, HOME CARE DOCUMENTATION FORM, MOTRIN USE, Work Instructions, Return To Work: 2 days Specific Date: 08/09/17 IMPORTANT VISIT INFORMATION Patient Instructions [employer] Additional Instructions Use the sling as needed for comfort Ice the shoulder intermittently 3 days, then use moist heat Gentle motion daily Avoid any heavy lifting above shoulder level Follow-up with your PCP for a physical therapy referral and to discuss nerve conduction testing of both arms Do not work tomorrow to allow symptoms to improve Work Instructions Return To Work: 2 days Specific Date: 08/09/17 Problem Qualifiers
[2017-08-06] MEDS ORDERED: SERT50TA PO (23:13)
== END 2017-08-06 19:24 | disposition home or self-care (01) ==
LOC: C.EDB 17:46 → C.EDD 19:24
DX: M75.92 Shoulder lesion, unspecified, left shoulder (principal); M54.12 Radiculopathy, cervical region; M54.5 Low back pain; G89.29 Other chronic pain; E11.9 Type 2 diabetes mellitus without complications; J45.909 Unspecified asthma, uncomplicated; Z83.3 Family history of diabetes mellitus; Z82.49 Family history of ischemic heart disease and other diseases of the circulatory system; Z83.6 Family history of other diseases of the respiratory system; Z83.79 Family history of other diseases of the digestive system; Z84.1 Family history of disorders of kidney and ureter

== ENCOUNTER 2017-09-24 19:56 | Emergency (ER) | payer OTHER ==
[~2017-09-24] VITALS: Ht 154.9 cm; Wt 96.2 kg
[~2017-09-24 19:56] MED LIST changes: +B-CO1CAP17 PO; +FLNIN/ NAE; +ROYA1CAP2 PO; +SERT50TA PO; -[UNRECOGNIZED DRUG - OTHER] PO
[2017-09-24 20:02] VITALS: BP 139/65; PULSE 89; TEMP 36.8; O2SAT 95; Ht 154.9 cm; Wt 96.2 kg
[2017-09-24] MEDS ORDERED: VLT/75 PO (20:41)
[2017-09-24] MEDS ORDERED: METH500T37 PO (20:41)
[2017-09-24] MEDS ORDERED: ZLF/100 PO (20:42)
[2017-09-24] MEDS ORDERED: BUPR150T5 PO (20:42)
--- NOTE | 2017-09-24 23:10 | EMERGENCY ROOM VISIT NOTE ---
History First contact with patient: 20:06 Chief Complaint: SORETHROAT Stated Complaint: SORE THROAT,COUGH,PAYTON History of Present Illness The patient is a 31 year old female who presents to the Emergency Room with complaints of sore throat, cough, and headache symptoms past 3-4 days. The patient feels like she has sinus congestion and drainage. She has not had fever or chills. She does not have a productive cough but is not taking anything [id number] for her symptoms. She rates her discomfort an 8/10. Review of Systems More than 10 systems were reviewed and otherwise negative with the exception of history of present illness. Past Medical/Surgical History Medical Problems: (1) Anxiety State Nos (2) Asthma, Unspecified (3) Depressive Disorder Nec (4) Migraine Unspecified W/O Intract Mgrn W/O Status Migrainosus Social History Problems: (1) Anxiety State Nos Family History Cardiovascular disease Diabetes mellitus Social History Smoking Status: Never Smoker Alcohol Use: occasionally Drug Use: none Marital Status: Housing Status: lives with family Occupation Status: employed Current/Historical Medications Scheduled Bupropion Hcl (Bupropion Hcl Xl), 150 MG PO DAILY Diclofenac Sod (Diclofenac Sodium Dr), 75 MG PO BID [place] Jelly ([place] Jelly), 1 TAB PO DAILY Sertraline HCl (Sertraline HCl), 100 MG PO DAILY Vitamin B Cmplx/Vitc/Folic Ac (Nephrocaps), 1 CAP PO DAILY Scheduled PRN Methocarbamol (Robaxin), 500 MG PO QID PRN for Muscle Spasms Physical Exam Vital Signs Date Time Temp Pulse Resp B/P (MAP) Pulse Ox O2 Delivery O2 Flow Rate FiO2 09/24/17 20:28 Room Air 09/24/17 20:02 36.8 89 18 139/65 95 Room Air Physical Exam VITALS: Vitals are noted on the nurse's note and reviewed by myself. Vital signs stable. GENERAL: Well-developed, well-nourished, white female, who is in no acute distress and resting comfortably. Patient is cooperative with the examination. HEAD: Normocephalic atraumatic. EARS: External ear normal. External auditory canals clear, tympanic membranes pearly terry without erythema or effusion bilaterally. EYES: Pupils equal round and reactive to light and accommodation. Conjunctivae without injection, sclerae without icterus. Extraocular movements intact. NOSE: Patent, turbinates without inflammation or discharge. MOUTH: Mucous membranes moist. Tonsils are not enlarged. Pharynx with mild erythema and no abscess. NECK: Supple without nuchal rigidity. No lymphadenopathy. No thyromegaly. Cervical spine is nontender. HEART: Regular rate and rhythm without murmurs gallops or rubs. LUNGS: Clear to auscultation bilaterally without wheezes, rales or rhonchi. No retractions or accessory muscle use. Medical Decision & Procedures ED Course Physical exam and history were performed. Nursing notes, EMR, and Medication List were personally reviewed. Patient appears to have sore throat and URI symptoms for the past several days. On examination she is not toxic. Rapid strep was performed and was negative. Overall I suspect the patient's symptoms are viral in nature. She is to use [id number] Advil and Tylenol for pain and fever control. We discussed conservative management, and she was referred to her primary care physician for further care and management. The chart was completed utilizing [employer] Voice Recognition Software. Grammatical errors, random word insertions, pronoun errors, and incomplete sentences are an occasional consequence of this system due to software limitations, ambient noise, and hardware issues. Any formal questions or concerns about the content, text, or information contained within the body of this dictation should be directly addressed to the provider for clarification. . Medical Decision Differential diagnosis: Etiologies such as viral syndrome, otitis, pharyngitis, pneumonia, influenza, meningitis, urinary tract infection, sepsis, bacteremia, as well as others were entertained. Impression Primary Impression: URI, acute Additional Impression: Sore throat Departure Information Dispostion Home / Self-Care Condition FAIR Forms HOME CARE DOCUMENTATION FORM, IMPORTANT VISIT INFORMATION Patient Instructions My [facility] Additional Instructions You were seen and evaluated today on an emergency basis only. This is not a substitute for, or an effort to provide, complete comprehensive medical care. It is not possible to recognize and treat all injuries or illnesses in a single emergency department visit. For this reason it is recommended that you followup with your primary care physician next week with any ongoing or persistent symptoms. For baseline pain relief you may alternate ibuprofen and acetaminophen every 4 hours for pain control. Take 600 mg ibuprofen (Advil) and then 4 hours later take 1000 mg acetaminophen (Tylenol). Do not take more than 3000 mg acetaminophen in a single day. You are welcome to return to the emergency department anytime with new, worsening, or concerning symptoms. Problem Qualifiers
== END 2017-09-24 20:56 | disposition home or self-care (01) ==
LOC: C.EDB 19:58 → C.EDD 20:56
DX: J06.9 Acute upper respiratory infection, unspecified (principal); J02.9 Acute pharyngitis, unspecified; Z83.3 Family history of diabetes mellitus

== ENCOUNTER 2017-11-06 11:25 | Emergency (ER) | payer OTHER ==
[~2017-11-06] VITALS: Ht 154.9 cm; Wt 98.0 kg
[~2017-11-06 11:25] MED LIST changes: -FLNIN/ NAE; -SERT50TA PO
[2017-11-06 11:31] VITALS: BP 137/92; PULSE 81; TEMP 36.5; O2SAT 98; Ht 154.9 cm; Wt 98.0 kg
--- NOTE | 2017-11-06 12:53 | DIAGNOSTIC IMAGING REPORT ---
R SHOULDER MIN 2 VIEWS ROUTINE CLINICAL HISTORY: 32 years-old Female presenting with Fall/shoulder injury. TECHNIQUE: Internal rotation, external rotation, and Grashey views of the right shoulder were obtained. COMPARISON: Chest x-ray from 2009. FINDINGS: Acromioclavicular and glenohumeral joints congruent. No acute fracture or malalignment. No advanced degenerative change. No radiographic soft tissue abnormality. Right hemithorax normal. IMPRESSION: No acute osseous injury of the right shoulder. Electronically signed by: Jeremy Byrd M.D. 11/06/2017 12:51 PM Dictated Date/Time: 11/06/2017 12:51 PM
--- NOTE | 2017-11-06 12:54 | DIAGNOSTIC IMAGING REPORT ---
R RIBS UNILATERAL WITH PA CHEST CLINICAL HISTORY: 32 years-old Female presenting with Fall/rib injury. TECHNIQUE: Frontal and oblique views of the right ribs as well as PA view of the chest were obtained. COMPARISON: Chest x-ray from 2012. FINDINGS: Cardiac mediastinal silhouette normal. Lungs and pleural spaces clear. Upper abdomen normal. No displaced right rib fracture. IMPRESSION: 1. No acute cardiopulmonary disease. 2. No displaced right rib fracture. Electronically signed by: Jeremy Byrd M.D. 11/06/2017 12:52 PM Dictated Date/Time: 11/06/2017 12:51 PM
--- NOTE | 2017-11-06 12:57 | DIAGNOSTIC IMAGING REPORT ---
R ELBOW MIN 3 VIEWS ROUTINE CLINICAL HISTORY: 32 years-old Female presenting with Fall/elbow injury, fall yesterday onto right arm and ribs, painful right ribs, painful right shoulder, painful right elbow. TECHNIQUE: Frontal, oblique, and lateral views of the right elbow were obtained. COMPARISON: None. FINDINGS: No elbow joint effusion. No acute fracture or malalignment. No advanced degenerative change. No radiographic soft tissue abnormality. IMPRESSION: No acute osseous injury of the right elbow. Electronically signed by: Jeremy Byrd M.D. 11/06/2017 12:56 PM Dictated Date/Time: 11/06/2017 12:55 PM
--- NOTE | 2017-11-06 13:10 | EMERGENCY ROOM VISIT NOTE ---
History First contact with patient: 11:37 Chief Complaint: FALL Stated Complaint: R ARM AND R SIDE PAIN FROM FALL History of Present Illness The patient is a 32 year old female who presents to the Emergency Room with complaints of 2 falls. The patient states yesterday she was in the shower and slipped and fell backwards striking her head on the shower wall. The patient denies any loss of consciousness. Dizziness, visual changes or memory loss. The patient denies any nausea or vomiting. The patient states she just had a headache. She states then later in the day she was walking in her kitchen with socks on and slipped and fell landing onto her right side. She is unsure if she lost consciousness but states she did not hit her head but hit her right shoulder and right hip. She now is complaining of pain in the right shoulder down to the elbow as well as some right hip pain but states she is not concerned about the hip pain since she is able to walk without difficulty. She also has some pain on her right ribs. The patient admits to slight increased pain with inspiration but increased pain with any movement. Review of Systems 10 system review was performed and was negative unless stated otherwise history of present illness. Past Medical/Surgical History Medical Problems: (1) Anxiety State Nos (2) Asthma, Unspecified (3) Depressive Disorder Nec (4) Migraine Unspecified W/O Intract Mgrn W/O Status Migrainosus Social History Problems: (1) Anxiety State Nos Family History Cardiovascular disease Diabetes mellitus Social History Smoking Status: Never Smoker Alcohol Use: occasionally Drug Use: none Marital Status: Housing Status: lives with family Occupation Status: employed Current/Historical Medications Scheduled Bupropion Hcl (Bupropion Hcl Xl), 150 MG PO DAILY Diclofenac Sod (Diclofenac Sodium Dr), 75 MG PO BID Sertraline HCl (Sertraline HCl), 100 MG PO DAILY Vitamin B Cmplx/Vitc/Folic Ac (Nephrocaps), 1 CAP PO DAILY Scheduled PRN Methocarbamol (Robaxin), 500 MG PO QID PRN for Muscle Spasms Physical Exam Vital Signs Date Time Temp Pulse Resp B/P (MAP) Pulse Ox O2 Delivery O2 Flow Rate FiO2 18 11:31 36.5 81 18 137/92 98 Room Air Physical Exam GENERAL: 32-year-old white female appears very dramatic in no acute distress. MENTAL STATUS: Patient is alert and oriented x3. HEAD: Atraumatic, mild tenderness palpation over the posterior aspect otherwise nontender to palpation throughout. No bony abnormality noted. EYES: PERRLA. EOMs intact. EARS: Canals clear. TMs without hemotympanum noted. NECK: Supple, no lymphadenopathy noted. No carotid bruits noted. LUNGS: Clear auscultation without wheezes rales or rhonchi. CARDIAC: Regular rate and rhythm without murmur. Pulses is full and equal throughout. CHEST WALL: No gross bony deformity noted. No erythema, edema or ecchymosis noted. The patient is is tender to palpation over the lateral right ribs otherwise nontender. ABDOMEN: Positive bowel sounds all 4 quadrants. Soft, nontender to palpation without organomegaly or masses. NEURO: Grossly intact. RIGHT SHOULDER: No gross bony deformity noted. No erythema or edema noted. The patient is diffusely tender to palpation. Limited range of motion secondary to the patient's pain. RIGHT ELBOW: No gross bony deformity noted. No erythema or edema noted. Patient has full range of motion but states that she is in pain when I am moving her elbow. RIGHT HIP: No gross bony deformity noted. No erythema, edema or ecchymosis noted. Full range of motion. Medical Decision & Procedures ER Provider Diagnostic Interpretation: R SHOULDER MIN 2 VIEWS ROUTINE CLINICAL HISTORY: 32 years-old Female presenting with Fall/shoulder injury. TECHNIQUE: Internal rotation, external rotation, and Grashey views of the right shoulder were obtained. COMPARISON: Chest x-ray from 2009. FINDINGS: Acromioclavicular and glenohumeral joints congruent. No acute fracture or malalignment. No advanced degenerative change. No radiographic soft tissue abnormality. Right hemithorax normal. IMPRESSION: No acute osseous injury of the right shoulder. Electronically signed by: Jeremy Byrd M.D. 11/06/2017 12:51 PM R RIBS UNILATERAL WITH PA CHEST CLINICAL HISTORY: 32 years-old Female presenting with Fall/rib injury. TECHNIQUE: Frontal and oblique views of the right ribs as well as PA view of the chest were obtained. COMPARISON: Chest x-ray from 2011. FINDINGS: Cardiac mediastinal silhouette normal. Lungs and pleural spaces clear. Upper abdomen normal. No displaced right rib fracture. IMPRESSION: 1. No acute cardiopulmonary disease. 2. No displaced right rib fracture. Electronically signed by: Jeremy Byrd M.D. R ELBOW MIN 3 VIEWS ROUTINE CLINICAL HISTORY: 32 years-old Female presenting with Fall/elbow injury, fall yesterday onto right arm and ribs, painful right ribs, painful right shoulder, painful right elbow. TECHNIQUE: Frontal, oblique, and lateral views of the right elbow were obtained. COMPARISON: None. FINDINGS: No elbow joint effusion. No acute fracture or malalignment. No advanced degenerative change. No radiographic soft tissue abnormality. IMPRESSION: No acute osseous injury of the right elbow. Electronically signed by: Jeremy Byrd M.D. 11/06/2017 12:56 PM ED Course Patient was evaluated. Right shoulder and right elbow x-rays were ordered and interpreted as above without any acute findings. Patient was informed of the findings discharged home in stable condition. Medical Decision Differential diagnoses include fractures versus contusions. I do not feel that this patient lost consciousness and she did not hit her head on the second fall which is where she states she thought she might have lost consciousness therefore a CT was not performed. [place] Drug Monitoring Program Search Results: patient reviewed within database Head Trauma GCS Score: 15 Medication Reconcilliation Current Medication List: was personally reviewed by me Blood Pressure Screening Patient's blood pressure: Elevated blood pressure Blood pressure disposition: Elevated BP felt to be situational Impression Primary Impression: Contusion of multiple sites Additional Impression: Fall Departure Information Dispostion Home / Self-Care Condition GOOD Referrals Kendrick Silva M.D. (PCP) Forms HOME CARE DOCUMENTATION FORM, IMPORTANT VISIT INFORMATION Patient Instructions Bruises Contusions, My [facility] Additional Instructions Ice intermittently to the affected areas over the next 24 hours. Tylenol and/ or ibuprofen as needed for pain. If symptoms persist or worsen, follow-up with your family doctor. Problem Qualifiers Additional Impression: Fall Encounter type: initial encounter Qualified Codes: W19.XXXA - Unspecified fall, initial encounter
--- NOTE | 2017-11-22 07:50 | EDITING REQUIRED CODING QUERY ---
CODING QUERY To promote full compliance with coding requirements relating to patient care, provider participation is requested in all cases of rn invasive uncertainty. Please assist us with the question(s) below: Coding Question(s): The primary diagnosis is listed as contusion of multiple sites. There is no documentation in the physical exam or impression regarding location(s) of the contusions. Please amend documentation to include contusion sites. Physician's Response(s): Change diagnosis to:1. Rt shoulder pain 2. rt elbow pain 3. head injury Thank you Adriana Titus Principal Diagnosis: "_that condition established after study, to be chiefly responsible for occasioning the admission of the patient to the hospital for care." Co-Existing Principal Diagnosis: "_when two or more diagnoses equally meet the criteria for principal diagnosis as determined by the circumstances of admission, diagnostic work up, and/or therapy provided, and the Alphabetic Index, Tabular List, or another coding guideline does not provide sequencing direction, any one of the diagnoses may be sequenced first." "When the physician has documented what appears to be a current diagnosis in the body of the record, but has not included the diagnosis in the final diagnostic statement, the physician should be asked whether the diagnosis should be added." (Source Coding Clinic 2 QTR90. p3-4)
== END 2017-11-06 13:19 | disposition home or self-care (01) ==
LOC: C.EDB 11:27 → C.EDD 13:19
DX: S09.90XA Unspecified injury of head, initial encounter (principal); M25.521 Pain in right elbow; M25.511 Pain in right shoulder; M25.551 Pain in right hip; W01.198A Fall on same level from slipping, tripping and stumbling with subsequent striking against other object, initial encounter; R07.81 Pleurodynia; R03.0 Elevated blood-pressure reading, without diagnosis of hypertension; J45.909 Unspecified asthma, uncomplicated; F41.8 Other specified anxiety disorders; Z79.899 Other long term (current) drug therapy; Z82.49 Family history of ischemic heart disease and other diseases of the circulatory system; Z83.3 Family history of diabetes mellitus

== ENCOUNTER 2017-11-23 19:18 | Emergency (ER) | payer OTHER ==
[~2017-11-23] VITALS: Ht 154.9 cm; Wt 93.7 kg
[~2017-11-23 19:18] MED LIST changes: -ROYA1CAP2 PO
[2017-11-23 19:45] VITALS: TEMP 36.5; Ht 154.9 cm; Wt 93.7 kg
[2017-11-23] MEDS ORDERED: VLT/75 PO (20:41)
[2017-11-23] MEDS ORDERED: METH500T37 PO (20:41)
[2017-11-23] MEDS ORDERED: ZLF/100 PO (20:42)
[2017-11-23] MEDS ORDERED: BUPR150T5 PO (20:42)
[2017-11-23] MEDS ORDERED: SODIUM CHLORIDE 0.65% NA SOLN 45 ML (OCEAN) STA (20:47)
[2017-11-23] MEDS ORDERED: IBUPROFEN 800 MG TAB PO STA (20:47)
[2017-11-23] MEDS ORDERED: ALBUT/IPRATROP 3MG/0.5MG NEB 3 ML VIAL INH STA (20:47)
[2017-11-23] MEDS ORDERED: ACETAMINOPHEN 500 MG TAB PO STA (20:47)
--- NOTE | 2017-11-23 20:47 | EMERGENCY ROOM VISIT NOTE ---
History Report prepared by Reji: Viridiana Wolf Under the Supervision of: Dr. Enrico Monroy M.D. First contact with patient: 20:42 Chief Complaint: ILLNESS Stated Complaint: SORE THROAT,COUGH,ETC History of Present Illness The patient is a 32 year old female who presents to the Emergency Room with complaints of constant flu like symptoms beginning several days ago. The patient reports having a cough, sorethroat, abdominal pain, and shortness of breath. The patient reports that she used Mucinex but that it did not help. She reports that she does not take any medications on a daily basis. Source of History: patient Onset: several days ago Position: other (global) Quality: other (flu-like symptoms ) Timing: constant Associated Symptoms: + sorethroat, + cough, + SOB, + abdominal pain Review of Systems See HPI for pertinent positives and negatives. A total of ten systems were reviewed and were otherwise negative. Past Medical & Surgical Medical Problems: (1) Anxiety State Nos (2) Asthma, Unspecified (3) Depressive Disorder Nec (4) Migraine Unspecified W/O Intract Mgrn W/O Status Migrainosus Social History Problems: (1) Anxiety State Nos Family History Cardiovascular disease Diabetes mellitus Social History Smoking Status: Never Smoker Alcohol Use: occasionally Drug Use: none Marital Status: Housing Status: lives with family Occupation Status: employed Current/Historical Medications Scheduled Bupropion Hcl (Bupropion Hcl Xl), 150 MG PO DAILY Cyanocobalamin (Vitamin B12), 1,000 MCG PO DAILY Sertraline HCl (Sertraline HCl), 100 MG PO DAILY Scheduled PRN Diclofenac Sod (Diclofenac Sodium Dr), 75 MG PO BID PRN for Pain Ibuprofen Tab (Motrin), 800 MG PO Q8H PRN for Pain Methocarbamol (Robaxin), 500 MG PO QID PRN for Muscle Spasm Allergies Coded Allergies: Adhesives (Verified Allergy, Severe, RED,IRRITATION, 05/20/17) NO KNOWN DRUG ALLERGIES (Verified Allergy, Mild, ., 05/20/17) Lactose Intolerance (GI) (Verified Adverse Reaction, Mild, GI SYMPTOMS, ) Physical Exam Vital Signs Date Time Temp Pulse Resp B/P (MAP) Pulse Ox O2 Delivery O2 Flow Rate FiO2 11/23/17 22:39 84 18 121/79 96 11/23/17 21:26 89 18 128/83 95 Room Air 11/23/17 19:45 36.5 94 18 134/78 95 Room Air Physical Exam GENERAL: Awake, alert, fatigued-appearing, in no distress HENT: Normocephalic, atraumatic. Dry mucous membranes and boggy turbinates. Mild tenderness to the maxillary and frontal sinuses. Mild injection from posterior pharynx. No edema or exudates. EYES: Normal conjunctiva. Sclera non-icteric. NECK: Supple. No nuchal rigidity. FROM. No JVD. RESPIRATORY: Scant, intermittent wheezes. Otherwise clear. CARDIAC: Regular rate, normal rhythm. Extremities warm and well perfused. Pulses equal. ABDOMEN: Soft, non-distended. No tenderness to palpation. No rebound or guarding. No masses. RECTAL: Deferred. MUSCULOSKELETAL: Chest examination reveals no tenderness. The back is symmetrical on inspection without obvious abnormality. There is no CVA tenderness to palpation. No joint edema. LOWER EXTREMITIES: Calves are equal size bilaterally and non-tender. No edema. No discoloration. NEURO: Normal sensorium. No sensory or motor deficits noted. SKIN: No rash or jaundice noted. Medical Decision & Procedures ER Provider Diagnostic Interpretation: Radiology results as stated below per my review and radiologist interpretation: CHEST ONE VIEW PORTABLE CLINICAL HISTORY: Cough. Shortness of breath. COMPARISON STUDY: Chest radiograph March 11, 2012. FINDINGS: Lung volumes are at the lower limits of normal. No pneumothorax or pleural effusion is noted. Pulmonary vascularity is normal. Cardiac size is unremarkable. Mediastinal contours are unremarkable. There may be calcified right midlung nodule. IMPRESSION: No acute cardiopulmonary findings. Electronically signed by: Pramod Estrada M.D. 11/23/2017 9:07 PM Dictated Date/Time: 11/23/2017 9:05 PM Laboratory Results Test 11/23/17 21:25 Influenza Type A (RT-PCR) Neg for Influ A (NEG) Influenza Type B (RT-PCR) Neg for Influ B (NEG) Laboratory results reviewed by me Medications Administered Medications (Trade) Dose Ordered Sig/Jos Route Start Time Stop Time Status Last Admin Dose Admin Ibuprofen (Motrin Tab) 800 mg NOW STAT PO 11/23/17 20:47 11/23/17 20:50 DC 11/23/17 21:13 800 MG Acetaminophen (Tylenol Tab) 1,000 mg NOW STAT PO 11/23/17 20:47 11/23/17 20:50 DC 11/23/17 21:14 1,000 MG Dexamethasone (Decadron Tab) 10 mg NOW ONCE PO 11/23/17 21:00 11/23/17 21:01 DC 11/23/17 21:13 10 MG Albuterol/ Ipratropium (Duoneb) 3 ml NOW STAT INH 11/23/17 20:47 11/23/17 20:50 DC 11/23/17 21:13 3 ML Sodium Chloride (S[place]yer Nasal [place]) 2 sprays NOW STAT NA 11/23/17 20:47 11/23/17 20:50 DC 11/23/17 21:13 2 SPRAYS Albuterol (Ventolin Hfa Inhaler) 2 puffs NOW ONCE INH 11/23/17 22:30 11/23/17 22:31 DC 11/23/17 22:41 2 PUFFS ED Course 2042: The patient was evaluated in room A4B. A complete history and physical exam was performed. Medical Decision I reviewed the patient's past medical history, medications, and the nursing notes as described above. The patient's presentation and history were concerning for viral illness, URI, influenza, sinusitis, and bronchitis. The patient is a 32-year-old woman who presents emergency department with cough and nasal congestion for the past couple of days per hpi. While the patient is fatigued appearing but no acute distress, afebrile stable vital signs. Patient has mild injection in the posterior pharynx without any significant edema. Patient has a scant intermittent wheeze but otherwise lungs are clear. The patient is relatively well-appearing and so no indication for IV or lab test at this time. Chest x-ray negative. Flu negative. Patient improved after APAP/IB, dexamethasone, duobneb. Sx c/w viral URI. Findings and plan for follow-up reviewed with patient. Patient agreeable and d/c'd per discharge instructions. Medication Reconcilliation Current Medication List: was personally reviewed by me Blood Pressure Screening Patient's blood pressure: Normal blood pressure Impression Primary Impression: Upper respiratory infection Scribe Attestation The scribe's documentation has been prepared under my direction and personally reviewed by me in its entirety. I confirm that the note above accurately reflects all work, treatment, procedures, and medical decision making performed by me. Departure Information Dispostion Home / Self-Care Prescriptions Ibuprofen Tab (MOTRIN) 800 Mg Tab 800 MG PO Q8H Y for Pain for 10 Days, #30 TAB Prov: Enrico Monroy M.D. 11/23/17 Referrals Kendrick Silva M.D. (PCP) Patient Instructions ED Upper Resp Infec No Abx Tx, My [facility] Additional Instructions Please follow up with your primary care physician in the next 1-3 days for re- evaluation. You likely have a viral upper respiratory infection. Otherwise, your exam, chest xray, and lab results did not show signs of an emergent condition at this time. Acetaminophen or ibuprofen for pain and fevers as needed. Saline nasal spray and [id number] Mucinex to help thin a clear mucus as needed. Albuterol every 4 hours for the next 48 hours and then as needed thereafter. Drink plenty of fluids to ensure hydration. Return to the emergency department for worsening symptoms as described in the accompanying instructions.
[2017-11-23] MEDS ORDERED: DEXAMETHASONE 4 MG TAB PO ONE (21:00)
--- NOTE | 2017-11-23 21:09 | DIAGNOSTIC IMAGING REPORT ---
CHEST ONE VIEW PORTABLE CLINICAL HISTORY: Cough. Shortness of breath. COMPARISON STUDY: Chest radiograph March 11, 2012. FINDINGS: Lung volumes are at the lower limits of normal. No pneumothorax or pleural effusion is noted. Pulmonary vascularity is normal. Cardiac size is unremarkable. Mediastinal contours are unremarkable. There may be calcified right midlung nodule. IMPRESSION: No acute cardiopulmonary findings. Electronically signed by: Pramod Estrada M.D. 11/23/2017 9:07 PM Dictated Date/Time: 11/23/2017 9:05 PM
[2017-11-23] MEDS ORDERED: CYAN100020 PO (21:30)
[2017-11-23 22:24] LABS: INFLUENZA A PCR Neg for Influ A (NEG); INFLUENZA B PCR Neg for Influ B (NEG)
[2017-11-23] MEDS ORDERED: IBUP-1451 PO (22:27)
[2017-11-23] MEDS ORDERED: ALBUTEROL HFA 8 GM INHALER INH ONE (22:30)
[2017-11-23 22:39] VITALS: BP 121/79; PULSE 84; O2SAT 96
== END 2017-11-23 22:41 | disposition home or self-care (01) ==
LOC: C.EDB 19:20 → C.EDA 22:41
DX: J06.9 Acute upper respiratory infection, unspecified (principal); R10.9 Unspecified abdominal pain; F41.8 Other specified anxiety disorders; J45.909 Unspecified asthma, uncomplicated; Z79.899 Other long term (current) drug therapy; Z91.048 Other nonmedicinal substance allergy status; Z91.011 Allergy to milk products